=== PATIENT | male | born 1985 | race African-American/Black ===

== ENCOUNTER 2018-01-18 18:17 | Emergency (ER) | payer MEDICAID ==
[~2018-01-18] VITALS: Ht 172.7 cm; Wt 78.0 kg
[2018-01-18 18:55] VITALS: BP 134/96
== END 2018-01-18 21:06 | disposition home or self-care (01) ==
LOC: ER 18:17
DX: L03.116 Cellulitis of left lower limb (principal); F12.10 Cannabis abuse, uncomplicated
CPT/HCPCS: 99283